=== PATIENT | male | born 1995 | race Caucasian/White ===

== ENCOUNTER 2022-05-29 17:38 | Emergency (ER) | payer MEDICAID, SELFPAY ==
[2022-05-29 17:40] VITALS: BP 147/84; PULSE 141; RESP 16; TEMP 36.6; O2SAT 99; BMI 28.8
--- NOTE | 2022-05-29 18:00 | US_ITS ---
INDICATION: right testicular mass EXAMINATION: US Art/Vein ABD/Pelvis/Scrotal Complete TECHNIQUE: Realtime ultrasound of the testicles was performed with grayscale, Color Doppler and spectral Doppler analysis. COMPARISON: None. FINDINGS: RIGHT: TESTIS: Measures 5 x 3.2 x 2.3 cm. There is a large heterogeneous hypoechoic mass measuring approximately 3 x 2.1 cm with internal vascularity. COLOR DOPPLER: Normal arterial flow present in the testicle with monophasic waveforms. EPIDIDYMIS: Normal in size and echotexture, with a 1.4 cm epididymal head cyst. [Normal color Doppler flow pattern in the epididymis. HYDROCELE: None. VARICOCELE: None. LEFT: TESTIS: Measures 4.5 x 2.8 x 2.8 cm. Normal in size and echotexture, without focal lesion. COLOR DOPPLER: Normal arterial flow present in the testicle with monophasic waveforms. EPIDIDYMIS: Normal in size and echotexture, without focal lesion. [Normal color Doppler flow pattern in the epididymis. HYDROCELE: None. VARICOCELE: None. US/Testicular with Arterial Flow IMPRESSION: 3 cm heterogeneous hypoechoic mass in the right testicle is highly concerning for malignancy. Recommend urology consult. 1.4 cm epididymal head cyst on right. Electronically Signed: Sean Arteaga MD at 19:17 EDT ,
--- NOTE | 2022-05-29 18:02 | EX.ED.GUMALE ---
HPI History of Present Illness Chief Complaint: Male Pain/Injury Detail of Chief Complaint: Possible right testicular mass Informant: patient Pain Onset: Days Context: Gradual Onset Narrative Narrative: Healthy 21-year-old male with listed past medical history. States he felt a possible mass on his right testicle last several days. Had an informal testicular ultrasound which is concerning for a mass so mom brought him in for further evaluation. He denies any pain. No dysuria. No fever. No weight loss. Prior similar symptoms: No Recent Illness/Hospitalization: No PFSH PFSH Medical History no medical history no medical history Home Medications NK 05/29/22 [History Last Taken Unknown] Allergy/AdvReac Type Severity Reaction Status Date / Time No Known Allergies Allergy Verified 05/29/22 17:41 Surgical History Hx of hernia repair Social History Smoking Status: Never smoker ROS ROS ED ROS Narrative Denies any recent illness. Review of Systems ROS Unobtainable: Denies due to encephalopathy Constitutional Constitutional ED: Denies chills Eyes Eyes: Denies blurry vision ENT ENT ED: Denies ear pain Cardiovascular Cardiovascular: Denies chest pain Respiratory/Chest Respiratory/Chest: Denies cough Gastrointestinal Gastrointestinal: Denies abdominal pain Genitourinary Genitourinary ED: Denies dysuria Musculoskeletal Musculoskeletal: Denies arthralgias Integumentary Denies abscess Neurologic Neurologic: Denies headache(s) Psychiatric Psychiatric: Denies anxiety Endocrine Endocrinology: Denies polydipsia Hematologic/Lymphatic Hematologic/Lymphatic: Denies easy bleeding Allergic/Immunologic Allergic/Immunologic ED: Denies mouth swelling EXAM Physical Exam Narrative Exam Narrative: 19-year-old male no acute distress vital signs stable afebrile. H EENT exam unremarkable. Neck nontender. No lymphadenopathy. Lungs clear to auscultation bilaterally. Heart tachycardic rate about 115. Abdomen soft nontender normal bowel sounds no peritoneal signs. No organomegaly or masses appreciated. External exam circumcised male. No lymphadenopathy. No ulcerations. No discharge. Left testicle nontender right testicle nontender possible mass. No hernia. Moving all 4 extremities. Otherwise exam normal. Const Vital Signs: 05/29/22 17:40 Temperature 98 F Temperature Source Temporal Pulse Rate 141 H Respiratory Rate 16 Blood Pressure 147/84 H Blood Pressure Mean 105 Pulse Ox 99 Oxygen Delivery Method Room Air Positive well nourished and well developed; Negative for obese, cachectic, contractures or unkempt General Appearance ED: well developed; Negative for unkempt, cachectic, contractures or pallor Nutritional Appearance: Negative for cachectic or obese HEENT Reports moist mucous membranes normocephalic; Negative for atraumatic, trauma or tenderness Eyes PERRL and EOMs intact bilaterally General Eye ED: Negative for pale conjunctiva or scleral icterus Neck no lymphadenopathy, supple and no JVD General: Negative for tenderness Resp normal respiratory effort and clear to auscultation bilaterally Effort and Inspection: Negative for retractions Auscultation: Negative for rales, rhonchi or wheezes Cardio regular rhythm, S1 normal heart sound and S2 normal heart sound; Negative for regular rate Rate: tachycardic GI non-tender, non-distended and no masses Inspection: Negative for abdominal distention Auscultation: normoactive bowel sounds Palpation: soft; Negative for tender, guarding, hepatomegaly or splenomegaly no CVA tenderness Narrative: External exam. Circumcised male. Left testicle and scrotum unremarkable. Right testicle possible mass. Nontender. No edema. Bladder / Kidney Exam: No CVA tenderness Groin / Perineum Exam: Negative for edema or lesions Back/Spine no CVA tenderness Extremity normal to inspection General Extremety ED: Negative for edema General Extremity: Negative for edema Neuro oriented x3, CN's II-XII intact bilaterally, moves all extremities and no focal motor deficits Sensorium / Orientation: alert, oriented to person, oriented to place and oriented to time; Negative for orientation impaired, confused, lethargic or stuporous Motor Exam: strength 5/5 throughout Psych mental status grossly normal Appearance: Negative for unkempt Attitude: No agitated Mood & Affect: Negative for depressed Thought Process: normal thought process Thought Content: normal thought content Skin General Skin Exam: Negative for jaundice or pallor Lesions: no lesions Rashes: no rashes MDM MDM MDM Narrative Medical decision making narrative: 27-year-old with possible right testicular mass. Ultrasound screening labs are being obtained. I discussed with mom this could be done as an outpatient and she is obviously very concerned and wants as much evaluation done at this time as possible. Discussed all test results with patient and his mother. Discussed with urology on-call. To ensure close follow-up. Family will call on Tuesday to get follow-up appointment. Lab Data Attestation: I reviewed the patient's lab results. Lab results narrative: CBC normal. White count 9. H&H 15 and 46. Electrolytes unremarkable gap at 2 normal BUN and creatinine. Liver enzymes are normal. Glucose 117. Urinalysis is negative. No signs of infection. Testicular ultrasound is concerning for right testicular mass. Possible malignancy. Labs: Laboratory Results - last 24 hr 05/29/22 05/29/22 05/29/22 18:10 18:10 18:15 WBC 9.2 RBC 5.30 Hgb 15.4 Hct 46.3 MCV 87.4 MCH 29.1 MCHC 33.3 RDW Std Deviation 40.0 RDW Coeff of Kellie 12.5 Plt Count 236 MPV 10.7 Immature Gran % (Auto) 0.300 Neut % (Auto) 57.9 Lymph % (Auto) 28.0 Humphreys % (Auto) 8.2 Eos % (Auto) 4.7 Baso % (Auto) 0.9 Absolute Neuts (auto) 5.3 Absolute Lymphs (auto) 2.58 Nucleated RBC % 0 Sodium 139 Potassium 3.7 Chloride 108 H Carbon Dioxide 29.0 Anion Gap 2 L BUN 10 Creatinine 1.23 Estim Creat Clear Calc 86.50 Est GFR (MDRD) Af Amer 90 Est GFR (MDRD) Non-Af 74 BUN/Creatinine Ratio 8.1 L Glucose 117 H Calcium 9.2 Total Bilirubin 0.30 AST 17 ALT 31 Alkaline Phosphatase 63 Total Protein 7.8 Albumin 4.0 Globulin 3.8 Albumin/Globulin Ratio 1.1 Urine Color Yellow Urine Clarity Clear Urine pH 6.0 Ur Specific [place] 1.025 Urine Protein 15 H Urine Glucose (UA) Normal Urine Ketones Negative Urine Occult Blood Negative Urine Nitrite Negative Urine Bilirubin Negative Urine Urobilinogen Normal Ur Leukocyte Esterase Negative Urine RBC 0 SEEN Urine WBC 0 SEEN Ur Squamous Epith Cells 0 SEEN Urine Bacteria 1+ Urine Mucus 2+ Radiography Diagnostic Testing: Clinical Impression(s) from Imaging Studies Testicular Ultrasound 05/29/22 18:00 IMPRESSION: 3 cm heterogeneous hypoechoic mass in the right testicle is highly concerning for malignancy. Recommend urology consult. 1.4 cm epididymal head cyst on right. Electronically Signed: Sean Arteaga MD at 19:17 EDT , Discharge Plan Triage Chief Complaint: Male Pain/Injury ED Provider: Rodolfo Joseph Dx/Rx/DC Orders Clinical Impression: Mass of right testicle Prescriptions: No Action NK Primary Care Provider: Care Physician,No Primary Referrals: Thor Bruno MD [Med Staff - Active Staff] - As soon as possible (Call on Tuesday for an appointment.) Care Physician,No Primary [Primary Care Provider] - Activity Restrictions/Additional Instructions: Call Dr. Sigifredo Bruno the urologist's office on Tuesday get set up to be appointment to be seen this week. I have discussed your case with him. Obviously they will need to do additional testing to come up with a specific diagnosis. Concerned that this may be testicular cancer but we do not have a definitive diagnosis at this time. Disposition Disposition: Home, Self Care
[2022-05-29 18:17] LABS: Absolute Lymphocyte Count 2.58 X10^3/uL (0.83-4.51); Absolute Neutrophil Count 5.3 X10^3/uL (2.0-7.7); Basophil# 0.08 X10^3/uL; Basophil% 0.9 % (0-1); Eosinophil# 0.43 X10^3/uL; Eosinophils% 4.7 % (0-5); Hematocrit 46.3 % (40-54); Hemoglobin 15.4 g/dL (13.0-16.5); Lymphocyte # 2.58 X10^3/ul (0.83-4.51); Mean Corp Hgb Conc 33.3 g/dL (32-36); Mean Corpuscular Hgb 29.1 pg (27.0-32.0); Mean Corpuscular Volume 87.4 fL (80-94); Mean Platelet Vol. 10.7 fl (6.2-12.0); Monocyte# 0.75 X10^3/uL; Monocyte% 8.2 % (0-10); NRBC Flagged by Analyzer 0 % (0-5); Neutrophil # 5.33 X10^3/uL (2.7-7.7); Neutrophil % 57.9 % (47-70); Platelet Count 236 K/mm3 (150-450); RBC Distribution Width CV 12.5 % (11.6-14.6); White Blood Count 9.2 K/mm3 (4.4-11.0)
[2022-05-29 18:22] LABS: Red Blood Cells-Urine 0 SEEN /hpf (0-5); Squamous Epithelial Cells - UA 0 SEEN /hpf (0-5); White Blood Cells 0 SEEN /hpf (0-5)
[2022-05-29 18:25] LABS: Color, Urine Yellow (Yellow); Glucose, Dipstick Normal (Normal); Ketone-Dipstick Negative (Negative); Leukocyte Esterase-Dipstick Negative /ul (Negative); Nitrite-Dipstick Negative (Negative); Occult Blood-Urine Negative /ul (Negative); Protein-Dipstick 15 mg/dl (Negative); Specific Gravity, Urine 1.025 (1.002-1.030); Urine Bilirubin Dipstick Negative (Negative); Urine Clarity Clear (Clear); Urine Urobilinogen Normal (Normal)
[2022-05-29 18:36] LABS: Bacteria 1+ /hpf (None Seen); Mucous, Urine 2+ /hpf (<or=2+)
[2022-05-29 18:42] LABS: ALB/GLOB Ratio 1.1 RATIO (0.9-2.4); AST(SGOT) 17 U/L (15-37); Alanine Aminotransfer ALT/SGPT 31 U/L (16-61); Alkaline Phosphatase 63 U/L (45-117); Anion Gap 2 (5-15); BUN 10 mg/dL (7-18); BUN/Creat Ratio 8.1 RATIO (10-20); Calcium,Total 9.2 mg/dL (8.5-10.1); Chloride 108 mmol/L (98-107); Creatinine, Serum 1.23 mg/dL (0.70-1.30); EST Glomerular Filtration Rate 74 mL/min (>60); Est Glom Filt Rate - Afr Amer 90 mL/min (>60); Globulin 3.8 g/dL (2.2-4.2); Glucose 117 mg/dL (74-106); Potassium 3.7 mmol/L (3.5-5.1); Protein, Total 7.8 g/dL (6.4-8.2); Sodium Level 139 mmol/L (136-145)
--- NOTE | 2022-05-29 20:08 | CASEMGMT ---
Social Work Note Reason for Referral: No PCP SW reviewed chart, pt has no PCP listed. SW in to speak with pt. Pt has guest present in room and gave permission for SW to speak to him in front of his guest. Pt confirms he has no PCP. SW provided pt with PCP list/Healthcare Provider Directory. SW also provided pt with Where to Go and When to Go. Xochitl Cortez SENIOR CONSULTING MANAGER, SENIOR TREASURY ANALYST
== END 2022-05-29 20:21 | disposition home or self-care (01) ==
PROVIDERS: Emergency Provider Emergency Medicine; Visit Provider Emergency Medicine
DX: N50.89 Other specified disorders of the male genital organs (principal)
CPT/HCPCS: 36415; 76870; 80053; 81001; 85025; 93976; 99282